=== PATIENT | female | born 1975 | race African-American/Black ===

== ENCOUNTER 2023-02-18 00:35 | Emergency (ER) | payer OTHER, MEDICAID ==
[~2023-02-18] VITALS: Ht 170.2 cm; Wt 91.0 kg
[2023-02-18 00:56] VITALS: BP 142/83
== END 2023-02-18 07:25 | disposition left against medical advice (07) ==
LOC: ER 00:35
DX: Z53.21 Procedure and treatment not carried out due to patient leaving prior to being seen by health care provider (principal)
CPT/HCPCS: 99281